=== PATIENT | female | born 1970 | race Caucasian/White ===

== ENCOUNTER 2016-07-17 08:58 | Day surgery (SDC) | payer OTHER ==
[2016-07-11 10:17] VITALS: BMI 39.4
[2016-07-17] MEDS ORDERED: MIDAZOLAM HCL 2 MG/2 ML SINGLE DOSE VIAL ONE ×2 (09:37→10:27)
[2016-07-17] MEDS ORDERED: PROPOFOL 20 ML ONE ×5 (09:38→10:33)
[2016-07-17] MEDS ORDERED: SUCCINYLCHOLINE CHLORIDE 200 MG/10 ML VIAL ONE (10:15)
[2016-07-17] MEDS ORDERED: LIDOCAINE HCL 2% 100 MG/5 ML DISP.SYRIN ONE (10:21)
[2016-07-17] MEDS ORDERED: ONDANSETRON 4 MG/2 ML VIAL ONE ×2 (10:34→11:36)
[2016-07-17] MEDS ORDERED: DEXAMETHASONE SOD PHOSPHATE 4 MG/1 ML VIAL ONE (10:34)
[2016-07-17] MEDS ORDERED: LIDOCAINE HCL 2% (50ML VIAL) INF ONE (11:00)
[2016-07-17] MEDS ORDERED: oxyCODONE HCL 5 MG TABLET PO PRN ×2 (11:18)
[2016-07-17] MEDS ORDERED: ONDANSETRON 4 MG/2 ML VIAL IVPUSH PRN (11:18)
[2016-07-17] MEDS ORDERED: ACETAMINOPHEN 500 MG TABLET (FP) PO PRN (11:18)
[2016-07-17] MEDS ORDERED: ONDANSETRON 4 MG/2 ML VIAL IVPUSH ONE (11:30)
[2016-07-17] MEDS ORDERED: LACTATED RINGERS SOLUTION 1,000 ML IV SCH (11:30)
[2016-07-17] MEDS ORDERED: oxyCODONE HCL 5 MG TABLET ONE (12:35)
[2016-07-17 13:32] VITALS: BP 122/82; PULSE 74; TEMP 98
--- NOTE | 2016-07-18 13:55 | OP ---
DATE OF OPERATION: 07/17/2016 PREOPERATIVE DIAGNOSIS: 1. Left carpal tunnel syndrome. 2. Left cubital tunnel syndrome. POSTOPERATIVE DIAGNOSIS: 1. Left carpal tunnel syndrome. 2. Left cubital tunnel syndrome. OPERATIVE PROCEDURE: 1. Left carpal tunnel release. 2. Left cubital tunnel release. SURGEON: Vinny Jones MD ANESTHESIA: General. COMPLICATIONS: None. ESTIMATED BLOOD LOSS: Minimal. INDICATIONS FOR PROCEDURE: The patient is a 46-year-old female with the above findings, indicated for operative treatment. The risks, benefits, and alternatives were discussed with the patient at length, and proper informed consent was obtained. PROCEDURE: After proper identification of the patient and the correct operative site, the patient was brought to the operating room and placed on the operating table with prominences well padded. General anesthesia was provided by the anesthesiologist adequate for the procedure. Left upper extremity was prepped and draped in the usual sterile fashion. Well-padded tourniquet was placed with a sterile prep. Esmarch bandage was used to exsanguinate the left upper extremity. The tourniquet was inflated to 250 mmHg. A longitudinal incision was made in the proximal aspect of the palm. Incision was taken sharply through the skin with blunt and sharp dissection through subcutaneous tissues. Palmar fascia was divided longitudinally. The transverse carpal ligament along with the distal 4 cm of antebrachial fascia was divided longitudinal under direct visualization with loupe magnification. This provided complete release of the median nerve at the wrist. Wound was irrigated with copious amounts of normal saline and repaired with 5-0 nylon suture. A 2nd incision was made over the posterior medial aspect of the elbow. Incision was taken sharply through the skin with blunt and sharp dissection through subcutaneous tissues. Care was taken to protect crossing nerve structures. Ulnar nerve was identified in the proximal tissues and released from the intermuscular septum through decubital tunnel and all the way through the insertion into the 2 heads of the flexor carpi ulnaris muscle. The ulnar nerve did not sublux at this point and had no further compression. Wound was irrigated with saline and repairedin layers using 4-0 Vicryl and 4-0 Monocryl sutures. Steri-Strips and sterile dressings were applied. A dressing was placed on the entire upper extremity, and the patient was reversed from anesthesia and brought to the recovery room in stable condition. She tolerated the procedure well. VINNY JONES M.D. [id number]
== END 2016-07-17 13:35 | disposition home or self-care (01) ==
LOC: FASU 08:58
PROVIDERS: ATTEND Orthopaedic Surgery Hand Surgery
PROC: 01N40ZZ Release Ulnar Nerve, Open Approach (ICD-10-PCS; 2016-07-17)
PROC: 01N50ZZ Release Median Nerve, Open Approach (ICD-10-PCS; principal; 2016-07-17 10:28)
DX: G56.02 Carpal tunnel syndrome, left upper limb (principal); G56.22 Lesion of ulnar nerve, left upper limb
CPT/HCPCS: 84703; 94760